=== PATIENT | female | born 1950 | race Caucasian/White ===

== ENCOUNTER 2019-05-13 07:05 | Outpatient (CLI) | payer OTHER ==
[~2019-05-13 07:05] MED LIST: DICLOFENAC SODI50 MG PO
== END 2019-05-13 07:15 | disposition home or self-care (01) ==
LOC: LAB 07:05
DX: M85.88 Other specified disorders of bone density and structure, other site (principal); E21.2 Other hyperparathyroidism; E88.89 Other specified metabolic disorders; M81.8 Other osteoporosis without current pathological fracture; E55.9 Vitamin D deficiency, unspecified; E56.1 Deficiency of vitamin K; M25.531 Pain in right wrist

== ENCOUNTER 2019-06-04 09:08 | Outpatient (CLI) | payer OTHER | END 2019-06-04 10:00 | disposition home or self-care (01) | LOC: RAD 09:08 | DX: M25.531 Pain in right wrist (principal); M79.631 Pain in right forearm; M25.511 Pain in right shoulder ==

== ENCOUNTER 2021-01-25 06:30 | Day surgery (SDC) | payer OTHER ==
[~2021-01-25 06:30] MED LIST changes: +CALCIU PO; +MAGNES PO
== END 2021-01-25 16:00 | disposition home or self-care (01) ==
LOC: CIR.AMB 06:30
PROVIDERS: ATTEND Orthopaedic Surgery Hand Surgery
DX: M18.12 Unilateral primary osteoarthritis of first carpometacarpal joint, left hand (principal); Z20.822 Contact with and (suspected) exposure to COVID-19